=== PATIENT | male | born 1955 | race Caucasian/White ===

== ENCOUNTER → 2019-12-15 | Outpatient (REF) | payer SELFPAY | LOC: M SMT 17:08 | PROVIDERS: ATTEND Nurse Practitioner Family | DX: N39.0 Urinary tract infection, site not specified (principal) ==

== ENCOUNTER → 2020-05-18 | Outpatient (CLI) | payer BC | LOC: M LAB 13:32 | PROVIDERS: ATTEND Nurse Practitioner Family | DX: R97.20 Elevated prostate specific antigen [PSA] (principal) ==

== ENCOUNTER → 2020-05-18 | Outpatient (CLI) | payer BC ==
[2020-05-18 15:23] LABS: ALBUMIN 3.8 GM/DL (3.2-5.2); ALT/SGPT 19 U/L (12-78); BILIRUBIN,TOTAL 0.2 MG/DL (0.2-1.0); BLOOD UREA NITROGEN 15 MG/DL (7-18); CARBON DIOXIDE LEVEL 29 MEQ/L (21-32); CHLORIDE LEVEL 106 MEQ/L (98-107); CHOLESTEROL LEVEL 133 MG/DL (<200); CHOLESTEROL RISK RATIO 2.254 (<5); CREATININE FOR GFR 0.93 MG/DL (0.70-1.30); GLOMERULAR FILTRATION RATE > 60.0 (>49); GLUCOSE, FASTING 81 MG/DL (70-100); HDL CHOLESTEROL 59 MG/DL (>40); LDL CHOLESTEROL 50 MG/DL (<100); NON-HDL-C 74 MG/DL; SODIUM LEVEL 140 MEQ/L (136-145); TOTAL PROTEIN 6.8 GM/DL (6.4-8.2); TRIGLYCERIDES LEVEL 120 MG/DL (<150)
[2020-05-18 15:26] LABS: CREATININE, URINE 71.7 MG/DL; MAU/CREAT RATIO 11.1 MCG/MG (0.0-30.0)
[2020-05-18 15:45] LABS: HEMOGLOBIN A1c 5.5 %
== END ==
LOC: M LAB 13:35
PROVIDERS: ATTEND Nurse Practitioner Family
DX: E78.2 Mixed hyperlipidemia (principal); R97.20 Elevated prostate specific antigen [PSA]; E11.9 Type 2 diabetes mellitus without complications

== ENCOUNTER → 2020-06-17 | Outpatient (CLI) | payer BC ==
--- NOTE | 2020-06-17 17:25 | REPVR ---
PROCEDURE INFORMATION: Exam: CT Maxillofacial Without Contrast, Sinus Exam date and time: 06/17/2020 4:58 PM Age: 64 years old Clinical indication: Sinusitis; Chronic; Additional info: Chronic pansinusitis TECHNIQUE: Imaging protocol: CT Maxillofacial without contrast. Focus on the sinuses. Radiation optimization: All CT scans at this facility use at least one of these dose optimization techniques: automated exposure control; mA and/or kV adjustment per patient size (includes targeted exams where dose is matched to clinical indication); or iterative reconstruction. COMPARISON: No relevant prior studies available. FINDINGS: There is mucosal thickening of the right and left frontal sinuses and left maxillary sinus. There is partial opacification and mucosal thickening throughout the ethmoid sinuses bilaterally. The right maxillary sinus and sphenoid sinuses are well aerated. No paranasal sinus air-fluid level is present. There is nodularity to the mucous lining of the nasal cavity which raises the suspicion for nasal polyposis. The bony nasal septum is midline. Both maxillary sinus ostiomeatal complexes are patent. Apparent multiple dental caries and periodontal lucency at the right upper central incisor tooth root apex. The mastoids are clear. The temporomandibular joints are intact. The ocular globes and retro-orbital fat are unremarkable. No fracture or suspicious bone lesion. The visualized intracranial structures are unremarkable. Unremarkable facial soft tissues. IMPRESSION: 1. Paranasal sinus mucosal thickening and partial opacification without air-fluid levels. 2. Findings suspicious for nasal polyposis. 3. Dental caries and periodontal lucency at the right upper central incisor tooth root apex. Electronically signed by: Jose Daniel Tate On 06/17/2020 17:26:10 PM
== END ==
LOC: M RAD 16:53
PROVIDERS: ATTEND Specialist
DX: J32.4 Chronic pansinusitis (principal); K02.9 Dental caries, unspecified; K05.5 Other periodontal diseases

== ENCOUNTER → 2020-08-30 | Outpatient (CLI) | payer BC | LOC: M SMT PRO 08:26 | PROVIDERS: ATTEND Urology | DX: Z53.9 Procedure and treatment not carried out, unspecified reason (principal) ==

== ENCOUNTER 2020-10-22 16:31 | Emergency (ER) | payer OTHER, BC ==
[~2020-10-22] VITALS: Ht 172.7 cm; Wt 90.6 kg
[2020-10-22 16:34] VITALS: BP 120/72
[2020-10-22] MEDS ORDERED: LISI-898 (16:55)
[2020-10-22] MEDS ORDERED: METF500T13 (16:55)
[2020-10-22] MEDS ORDERED: ATOR1TAB21 (16:55)
[2020-10-22] MEDS ORDERED: SERT50TA29 (16:55)
[2020-10-22] MEDS ORDERED: ASPI81TA26 (16:55)
--- NOTE | 2020-10-22 20:02 | REP ---
INDICATION: pt tender, decr. ROM, pulled with weight at work. COMPARISON: None. TECHNIQUE: There are three views of the right shoulder and three views of the left shoulder. FINDINGS: Right shoulder: The acromioclavicular and glenohumeral articulations are unremarkable. Mineralization is normal. There are no calcifications or foreign bodies. Left shoulder: The acromioclavicular joint is widened. This may be postsurgical. There is no elevation of the distal clavicle. There is a faintly visible calcification along the superior margin of the acromioclavicular joint, postsurgical versus ligamentous calcification. There is no fracture or dislocation. Mineralization is normal. There are no calcifications or foreign bodies. IMPRESSION: Essentially negative right shoulder. Widened left acromioclavicular joint, possibly postsurgical. <Electronically signed by Law Anna > 10/22/[id number]
[2020-10-22] MEDS ORDERED: methocarbamoL 750 MG TAB PO ONE (21:25)
[2020-10-22] MEDS ORDERED: METH-1164 PO (21:27)
--- NOTE | 2020-10-24 08:43 | REP ---
INDICATION: pt tender, pulled at work. Repeat dictation. Preliminary report is provided at the time of the exam by christina CASSIDY. COMPARISON: None. TECHNIQUE: Helical scanning is acquired and overlapping 2 mm high resolution axial images were generated and reviewed at bone and soft tissue window settings. Coronal and sagittal multiplanar re-formations images are generated. FINDINGS: There is no evidence of cervical spine element fracture. No skull base fracture is seen. Cervical vertebral body heights are preserved. Alignment is normal. Facet joints are normally aligned bilaterally at each cervical level on multiplanar re-formations images. There is no evidence of intraspinal or paraspinal hematoma. No extra vertebral abnormality is seen. There is slight straightening and there are degenerative changes at C1-2. Mild degenerative disc changes are noted. There is mild osteoarthritic facet hypertrophy. Possible nodule in the posterior aspect of the left thyroid gland. IMPRESSION: Degenerative spondylosis changes. No traumatic abnormality noted.. Possible left thyroid nodule. Consider thyroid sonography per <Electronically signed by Hector Tatum > 10/24/20 [id number]
== END 2020-10-22 21:37 | disposition home or self-care (01) ==
LOC: M ED 16:31
DX: S19.9XXA Unspecified injury of neck, initial encounter (principal); X50.9XXA Other and unspecified overexertion or strenuous movements or postures, initial encounter; Y92.89 Other specified places as the place of occurrence of the external cause; Y99.0 Civilian activity done for income or pay; M25.511 Pain in right shoulder; M25.512 Pain in left shoulder; I10 Essential (primary) hypertension; E78.5 Hyperlipidemia, unspecified; Z79.899 Other long term (current) drug therapy; Z79.82 Long term (current) use of aspirin; Z79.84 Long term (current) use of oral hypoglycemic drugs